=== PATIENT | female | born 1995 | race Hispanic/Latino ===

== ENCOUNTER 2021-08-29 03:15 | Emergency (ER) | payer OTHER ==
[~2021-08-29] VITALS: Ht 160 cm; Wt 100.7 kg
[2021-08-29] MEDS ORDERED: ONDANSETRON HCL INJ 2MG/ML 2ML 2 MG/ML VIAL IV STA (03:44)
[2021-08-29] MEDS ORDERED: BELLADONNA ALK/PHENOBARBITAL 5 ML UDC PO ONE (03:45)
[2021-08-29] MEDS ORDERED: LIDOCAINE VISC 2% SOLN 15 ML UDC PO ONE (03:45)
[2021-08-29] MEDS ORDERED: MAGNESIUM/ALUMINUM/SIMETHICONE 30 ML UDC PO ONE (03:45)
[2021-08-29] MEDS ORDERED: ONDANSETRON HCL INJ 2MG/ML 2ML 2 MG/ML VIAL ONE (04:04)
[2021-08-29] MEDS ORDERED: MAGNESIUM/ALUMINUM/SIMETHICONE 30 ML UDC ONE (04:04)
[2021-08-29] MEDS ORDERED: BELLADONNA ALK/PHENOBARBITAL 5 ML UDC ONE (04:04)
[2021-08-29 04:05] LABS: BASOPHILS # (AUTO) 0.1 (0.0-0.1); BASOPHILS % 0.7 % (0.0-1.0); EOSINOPHILS # (AUTO) 0.3 (0.0-0.4); HEMATOCRIT 35.5 % (34.2-44.1); HEMOGLOBIN 11.6 g/dL (12.0-16.0); LYMPHOCYTES # (AUTO) 3.4 (1.0-3.2); LYMPHOCYTES % 36.8 % (18.0-39.1); MEAN CORPUSCULAR HEMOGLOBIN 26.4 pg (28-32); MEAN CORPUSCULAR HGB CONC 32.7 g/dL (31-35); MEAN CORPUSCULAR VOLUME 80.7 fL (81-99); MONOCYTES # (AUTO) 0.6 (0.2-0.8); MONOCYTES % 6.1 % (4.4-11.3); NEUTROPHILS # (AUTO) 4.9 (2.1-6.9); NEUTROPHILS % 53.3 % (38.7-80.0); PLATELET COUNT 390 x10e3/uL (140-360); RED CELL DISTRIBUTION WIDTH 13.2 % (11.7-14.4)
[2021-08-29 04:06] LABS: CLARITY,URINE CLOUDY (CLEAR); COLOR,URINE AMBER (YELLOW); KETONES,URINE NEGATIVE (NEGATIVE); LEUKOCYTE ESTERASE ,URINE NEGATIVE (NEGATIVE); NITRITE,URINE NEGATIVE (NEGATIVE); PROTEIN,URINE DIPSTICK 1+ (NEGATIVE); URINE UROBILINOGEN 0.2 mg/dL (0.2 - 1)
[2021-08-29 04:11] LABS: BACTERIA,URINE FEW /HPF; EPITHELIAL CELLS,URINE RARE /LPF; RBC,URINE >50 /HPF (0-5)
[2021-08-29 04:22] LABS: AMYLASE 43 U/L (25-125); LIPASE 13 U/L (8-78)
[2021-08-29 04:26] LABS: ALBUMIN 3.6 g/dL (3.5-5.0); ALBUMIN/GLOBULIN RATIO 1.1 (0.8-2.0); ANION GAP 10.9 mmol/L (8-16); CALCIUM 9.3 mg/dL (8.4-10.2); CREATININE, SERUM 0.78 mg/dL (0.57-1.11); POTASSIUM 3.9 mmol/L (3.5-5.1)
== END 2021-08-29 04:39 | disposition home or self-care (01) ==
LOC: ER 03:44
DX: R10.13 Epigastric pain (principal); K29.70 Gastritis, unspecified, without bleeding; K21.9 Gastro-esophageal reflux disease without esophagitis
CPT/HCPCS: 36415; 80053; 81001; 81025; 82150; 83690; 85025; 99284; C9113; J2405

== ENCOUNTER 2023-06-24 11:59 | Inpatient (IN) | payer SELFPAY ==
[~2023-06-24] VITALS: Ht 160 cm; Wt 102.1 kg
[2023-06-24] MEDS ORDERED: ONDANSETRON HCL INJ 2MG/ML 2ML 2 MG/ML VIAL IV STA (12:40)
[2023-06-24] MEDS ORDERED: SODIUM CHLORIDE 0.9% 1000ML 1,000 ML IV STA (12:40)
[2023-06-24] MEDS ORDERED: DICYCLOMINE HCL 20 MG/2 ML VIAL IM ONE ×2 (12:45→16:30)
[2023-06-24 13:24] LABS: BASOPHILS % 0.1 % (0.0-1.0); HEMATOCRIT 34.2 % (34.2-44.1); HEMOGLOBIN 10.4 g/dL (12.0-16.0); LYMPHOCYTES # (AUTO) 0.7 (1.0-3.2); LYMPHOCYTES % 4.6 % (18.0-39.1); MEAN CORPUSCULAR HEMOGLOBIN 22.7 pg (28-32); MEAN CORPUSCULAR HGB CONC 30.4 g/dL (31-35); MEAN CORPUSCULAR VOLUME 74.7 fL (81-99); MONOCYTES # (AUTO) 0.2 (0.2-0.8); MONOCYTES % 1.2 % (4.4-11.3); NEUTROPHILS # (AUTO) 13.2 (2.1-6.9); NEUTROPHILS % 93.7 % (38.7-80.0); PLATELET COUNT 473 x10e3/uL (140-360); RED BLOOD COUNT 4.58 x10e6/uL (3.6-5.1); RED CELL DISTRIBUTION WIDTH 14.7 % (11.7-14.4); WHITE BLOOD COUNT 14.09 x10e3/uL (4.8-10.8)
[2023-06-24 13:40] LABS: ALANINE AMINOTRANSFERASE 54 IU/L (0-55); ALBUMIN 3.9 g/dL (3.5-5.0); ALBUMIN/GLOBULIN RATIO 1.1 (0.8-2.0); ALKALINE PHOSPHATASE 127 IU/L (40-150); ANION GAP 15.9 mmol/L (8-16); BILIRUBIN,TOTAL 0.3 mg/dL (0.2-1.2); BLOOD UREA NITROGEN 13 mg/dL (7-26); BUN/CREATININE RATIO 19 (6-25); CALCIUM 8.6 mg/dL (8.4-10.2); CARBON DIOXIDE 20 mmol/L (22-29); CHLORIDE 106 mmol/L (98-107); CREATININE, SERUM 0.68 mg/dL (0.57-1.11); EST GLOMERULAR FILTRATION RATE 122 ML/MIN (>=60); GLUCOSE 124 mg/dL (74-118); MAGNESIUM 2.1 MG/DL (1.3-2.1); POTASSIUM 3.9 mmol/L (3.5-5.1); SODIUM 138 mmol/L (136-145); TOTAL PROTEIN 7.5 g/dL (6.5-8.1)
[2023-06-24] MEDS ORDERED: IOPAMIDOL 370 MG/ML 100 ML INFUS..BTL INJ ONE (14:05)
[2023-06-24 14:12] LABS: LIPASE 2391 U/L (8-78)
[2023-06-24 16:23] LABS: INR 1.02; PROTHROMBIN TIME 13.6 seconds (11.9-14.5)
[2023-06-24 16:24] LABS: PARTIAL THROMBOPLASTIN TIME 31.3 seconds (23.8-35.5)
[2023-06-24] MEDS ORDERED: ONDANSETRON HCL INJ 2MG/ML 2ML 2 MG/ML VIAL IV ONE (16:30)
[2023-06-24] MEDS ORDERED: SODIUM CHLORIDE 0.9% 1000ML 1,000 ML IV ONE (16:30)
[2023-06-24] MEDS ORDERED: SODIUM CHLORIDE 0.9% 1000ML 1,000 ML IV SCH (18:00)
[2023-06-24] MEDS: Morphine 4mg INJECTION 4 MG/ML INJ IV PRN ×2 (19:09→23:34)
[2023-06-24] MEDS: ONDANSETRON HCL INJ 2MG/ML 2ML 2 MG/ML VIAL IV PRN (19:09)
[2023-06-24 21:04] VITALS: BP 122/57; PULSE 88; RESP 18; TEMP 98.2; O2SAT 100
[2023-06-24 22:19] VITALS: BP 122/57; PULSE 88; RESP 18; TEMP 98.2; O2SAT 100
[2023-06-25] VITALS (8 sets, daily range): BP systolic 107–132; BP diastolic 61–68; PULSE 90–117; RESP 18–20; TEMP 98.6–100.5; O2SAT 91–100
[2023-06-25] MEDS ORDERED: AMOXICILLIN500 MG PO (01:07)
[2023-06-25] MEDS: LACTATED RINGER'S 1,000 ML INJ SCH ×7 (01:15→23:33)
[2023-06-25] MEDS: Morphine 4mg INJECTION 4 MG/ML INJ IV PRN ×4 (04:01→18:02)
[2023-06-25 05:44] LABS: BASOPHILS % 0.1 % (0.0-1.0); EOSINOPHILS % 0.1 % (0.0-6.0); HEMATOCRIT 30.4 % (34.2-44.1); HEMOGLOBIN 9.1 g/dL (12.0-16.0); LYMPHOCYTES # (AUTO) 1.3 (1.0-3.2); LYMPHOCYTES % 8.9 % (18.0-39.1); MEAN CORPUSCULAR HEMOGLOBIN 22.6 pg (28-32); MEAN CORPUSCULAR HGB CONC 29.9 g/dL (31-35); MEAN CORPUSCULAR VOLUME 75.4 fL (81-99); MONOCYTES # (AUTO) 0.7 (0.2-0.8); MONOCYTES % 4.6 % (4.4-11.3); NEUTROPHILS % 85.9 % (38.7-80.0); PLATELET COUNT 398 x10e3/uL (140-360); RED BLOOD COUNT 4.03 x10e6/uL (3.6-5.1); RED CELL DISTRIBUTION WIDTH 14.8 % (11.7-14.4); WHITE BLOOD COUNT 14.01 x10e3/uL (4.8-10.8)
[2023-06-25 06:53] LABS: ALBUMIN 3.2 g/dL (3.5-5.0); ALBUMIN/GLOBULIN RATIO 1.1 (0.8-2.0); ANION GAP 11.3 mmol/L (8-16); BILIRUBIN,TOTAL 0.4 mg/dL (0.2-1.2); CALCIUM 7.9 mg/dL (8.4-10.2); CREATININE, SERUM 0.62 mg/dL (0.57-1.11); TOTAL PROTEIN 6.2 g/dL (6.5-8.1)
[2023-06-25 06:54] LABS: POTASSIUM 3.3 mmol/L (3.5-5.1)
[2023-06-26 00:04] VITALS: BP 126/77; PULSE 120; RESP 20; TEMP 102.4; O2SAT 92
[2023-06-26] MEDS: ACETAMINOPHEN 325 MG TAB PO PRN ×3 (01:14→20:49)
[2023-06-26 03:50] VITALS: BP 119/70; PULSE 96; RESP 18; TEMP 99.7; O2SAT 90
[2023-06-26] MEDS: LACTATED RINGER'S 1,000 ML INJ SCH ×4 (05:18→18:06)
[2023-06-26 06:05] VITALS: BP 119/70; PULSE 96; RESP 18; TEMP 99.7; O2SAT 90
[2023-06-26 07:45] VITALS: BP 124/67; PULSE 113; RESP 20; TEMP 99.7; O2SAT 100
[2023-06-26 11:30] VITALS: BP 129/69; PULSE 117; RESP 20; TEMP 99.6; O2SAT 96
[2023-06-26] MEDS: Morphine 4mg INJECTION 4 MG/ML INJ IV PRN ×2 (15:28→20:49)
[2023-06-26 16:30] VITALS: BP 118/67; PULSE 114; RESP 20; TEMP 100.2; O2SAT 89
[2023-06-26 17:09] LABS: BASOPHILS # (AUTO) 0.1 (0.0-0.1); BASOPHILS % 0.3 % (0.0-1.0); EOSINOPHILS # (AUTO) 0.1 (0.0-0.4); EOSINOPHILS % 0.3 % (0.0-6.0); HEMOGLOBIN 8.5 g/dL (12.0-16.0); LYMPHOCYTES # (AUTO) 1.6 (1.0-3.2); LYMPHOCYTES % 10.9 % (18.0-39.1); MEAN CORPUSCULAR HEMOGLOBIN 22.8 pg (28-32); MEAN CORPUSCULAR HGB CONC 30.4 g/dL (31-35); MEAN CORPUSCULAR VOLUME 75.1 fL (81-99); MONOCYTES # (AUTO) 0.8 (0.2-0.8); MONOCYTES % 5.2 % (4.4-11.3); NEUTROPHILS # (AUTO) 12.4 (2.1-6.9); NEUTROPHILS % 82.6 % (38.7-80.0); PLATELET COUNT 330 x10e3/uL (140-360); RED BLOOD COUNT 3.73 x10e6/uL (3.6-5.1); RED CELL DISTRIBUTION WIDTH 14.7 % (11.7-14.4); WHITE BLOOD COUNT 14.98 x10e3/uL (4.8-10.8)
[2023-06-26 17:26] LABS: ANION GAP 11.4 mmol/L (8-16); CREATININE, SERUM 0.59 mg/dL (0.57-1.11)
[2023-06-26 17:31] LABS: POTASSIUM 3.4 mmol/L (3.5-5.1)
[2023-06-27] VITALS (11 sets, daily range): BP systolic 121–133; BP diastolic 65–81; PULSE 96–114; RESP 15–18; TEMP 98.4–100.7; O2SAT 92–98
[2023-06-27] MEDS: LACTATED RINGER'S 1,000 ML INJ SCH ×3 (01:20→23:37)
[2023-06-27] MEDS: ACETAMINOPHEN 325 MG TAB PO PRN ×2 (01:20→23:46)
[2023-06-27] MEDS ORDERED: SUGAMMADEX SODIUM 200 MG/2 ML VIAL IV ONE (06:36)
[2023-06-27] MEDS ORDERED: ACETAMINOPHEN 1000 MG/100 ML 100 ML IV ONE (06:36)
[2023-06-27] MEDS ORDERED: BUPIVACAINE 0.25% 30ML SDV ONE (06:57)
[2023-06-27] MEDS ORDERED: FENTANYL CITRATE/PF 100MCG/2 ML INJ IV ONE (12:03)
[2023-06-27] MEDS ORDERED: FENTANYL CITRATE/PF 100MCG/2 ML INJ ONE ×2 (12:04→12:22)
[2023-06-27] MEDS ORDERED: MIDAZOLAM HCL 2 MG/2 ML VIAL ONE (12:22)
[2023-06-27] MEDS ORDERED: LIDOCAINE HCL 2% LOCAL INJ 5 ML SDV VIAL INJ ONE (12:50)
[2023-06-27] MEDS ORDERED: ONDANSETRON HCL INJ 2MG/ML 2ML 2 MG/ML VIAL ONE (12:50)
[2023-06-27] MEDS ORDERED: PROPOFOL IV EMULSION 10 MG/ML 20 ML VIAL ONE (12:50)
[2023-06-27] MEDS ORDERED: SEVOFLURANE INHAL SOLN 250 ML PEN BTL ONE (12:50)
[2023-06-27] MEDS ORDERED: ROCURONIUM BROMIDE 10 MG/ML 5ML VIAL IV ONE (12:50)
[2023-06-27] MEDS ORDERED: KETOROLAC TROMETHAMINE 30 MG/ML VIAL ONE (12:50)
[2023-06-27] MEDS: ONDANSETRON HCL INJ 2MG/ML 2ML 2 MG/ML VIAL IV PRN (15:32)
[2023-06-27] MEDS: Morphine 4mg INJECTION 4 MG/ML INJ IV PRN ×2 (15:32→21:29)
[2023-06-27 16:24] LABS: BASOPHILS % 0.3 % (0.0-1.0); EOSINOPHILS % 0.2 % (0.0-6.0); HEMATOCRIT 25.6 % (34.2-44.1); HEMOGLOBIN 7.8 g/dL (12.0-16.0); LYMPHOCYTES # (AUTO) 1.4 (1.0-3.2); LYMPHOCYTES % 10.5 % (18.0-39.1); MEAN CORPUSCULAR HEMOGLOBIN 22.6 pg (28-32); MEAN CORPUSCULAR HGB CONC 30.5 g/dL (31-35); MEAN CORPUSCULAR VOLUME 74.2 fL (81-99); MONOCYTES # (AUTO) 0.6 (0.2-0.8); MONOCYTES % 4.4 % (4.4-11.3); NEUTROPHILS # (AUTO) 11.5 (2.1-6.9); NEUTROPHILS % 83.9 % (38.7-80.0); PLATELET COUNT 374 x10e3/uL (140-360); RED BLOOD COUNT 3.45 x10e6/uL (3.6-5.1); RED CELL DISTRIBUTION WIDTH 14.6 % (11.7-14.4); WHITE BLOOD COUNT 13.69 x10e3/uL (4.8-10.8)
[2023-06-27 16:38] LABS: ANION GAP 10.9 mmol/L (8-16); CREATININE, SERUM 0.58 mg/dL (0.57-1.11)
[2023-06-27 16:42] LABS: POTASSIUM 2.9 mmol/L (3.5-5.1)
[2023-06-28 04:35] VITALS: BP 108/59; PULSE 105; RESP 18; TEMP 98.3; O2SAT 94
[2023-06-28] MEDS: Morphine 4mg INJECTION 4 MG/ML INJ IV PRN (05:46)
[2023-06-28 08:17] VITALS: BP 131/66; PULSE 99; RESP 17; TEMP 98.6; O2SAT 95
[2023-06-28] MEDS: LACTATED RINGER'S 1,000 ML INJ SCH (09:15)
[2023-06-28] MEDS ORDERED: TYLENOL 3 PO (11:32)
[2023-06-28 11:38] VITALS: BP 118/63; PULSE 109; RESP 17; TEMP 99.5; O2SAT 94
[2023-06-28 11:50] LABS: ANION GAP 11.7 mmol/L (8-16); BLOOD UREA NITROGEN < 5 mg/dL (7-26); CALCIUM 8.1 mg/dL (8.4-10.2); CARBON DIOXIDE 25 mmol/L (22-29); CHLORIDE 102 mmol/L (98-107); CREATININE, SERUM 0.62 mg/dL (0.57-1.11); EST GLOMERULAR FILTRATION RATE 125 ML/MIN (>=60); GLUCOSE 142 mg/dL (74-118); SODIUM 136 mmol/L (136-145)
[2023-06-28 11:55] LABS: BUN/CREATININE RATIO 8 (6-25); POTASSIUM 2.7 mmol/L (3.5-5.1)
[2023-06-28] MEDS ORDERED: POTASSIUM CHLORIDE 20 MEQ TAB CR PO ONE (13:20)
== END 2023-06-28 14:29 | disposition home or self-care (01) | DRG 419 ==
LOC: ER 12:20 → ERHOLD 17:59 → MED/SURG 20:48
PROVIDERS: ADMIT Internal Medicine; ATTEND Internal Medicine
PROC: 0FT44ZZ Resection of Gallbladder, Percutaneous Endoscopic Approach (ICD-10-PCS; principal; 2023-06-27 10:20)
DX: K85.10 Biliary acute pancreatitis without necrosis or infection (principal); K21.9 Gastro-esophageal reflux disease without esophagitis; K81.9 Cholecystitis, unspecified; D72.829 Elevated white blood cell count, unspecified
CPT/HCPCS: 36415; 74177; 76705; 80048; 80053; 83690; 83735; 84702; 85025; 85610; 85730; 88304; 99284; J1885; J2001; J2250; J2270; J2405; J2543; J7030; Q9967; U0002

== ENCOUNTER 2025-01-28 09:21 | Emergency (ER) | payer OTHER ==
[~2025-01-28] VITALS: Ht 157.5 cm; Wt 98.4 kg
[~2025-01-28 09:21] MED LIST: AMOXICILLIN500 MG PO; TYLENOL 3 PO
[2025-01-28 09:24] VITALS: PULSE 98; RESP 18; TEMP 98.2
[2025-01-28] MEDS ORDERED: BACTRIM DS TAB1 EACH PO (09:44)
[2025-01-28] MEDS ORDERED: CEPHALEXIN500 MG PO (09:44)
[2025-01-28 09:45] VITALS: BP 140/77; O2SAT 98
== END 2025-01-28 09:50 | disposition home or self-care (01) ==
LOC: ER 09:25
DX: N76.2 Acute vulvitis (principal)
CPT/HCPCS: 99283